=== PATIENT | female | born 1985 | race Caucasian/White ===

== ENCOUNTER 2020-12-01 13:35 | Emergency (ER) | payer OTHER, SELFPAY ==
[2020-12-01 14:11] VITALS: BP 103/59; PULSE 77; RESP 18; TEMP 36.1; O2SAT 98; BMI 31.6
--- NOTE | 2020-12-01 15:30 | ED_ITS ---
HPI - General Adult General Chief complaint: General Medical Stated complaint: covid symptoms Time Seen by Provider: 12/01/20 15:30 Source: patient Mode of arrival: ambulatory Limitations: no limitations History of Present Illness HPI narrative: 35 y/o female with history of anxiety, ADHD, PTSD presents to the ED with 2 days of headaches, body aches, dry cough and intermittent vomiting. She has been able to tolerate some food and drink by mouth if she takes her Zofran in the morning. She reports coughing and difficultly taking a deep breath in. No chest pain or JOHN. She has not had any fevers. She denied abdominal pain but has been nauseated. Last time she vomited was last night. She has 6 children and presents with her daughter who has a new fever noted today. No other sick contacts. She lives in a [facility] but has her own apartment in the [facility] [place]. complaint: COVID symptoms Onset (ago): day(s) (2) Location: head, chest, back and abdomen Radiation: non-radiation Severity: moderate Quality: aching Pain Consistency: intermittent Relieving factors: medication Exacerbating factors: movement Associated symptoms: cough, diaphoresis, headaches, malaise, nausea/vomiting and shortness of breath Treatments prior to arrival: none Related Data Home Medications Medication Instructions Recorded Confirmed buprenorphine HCl 8 mg sublingual mg SUBLINGUAL 06/08/20 09/06/20 tablet Previous Rx's Medication Instructions Recorded gabapentin 800 mg tablet 800 mg PO TID 90 Days #270 tab 10/27/20 lisdexamfetamine 60 mg capsule 60 mg PO DAILY 30 Days #30 cap 10/27/20 azithromycin [Zithromax Z-Miller] See Rx Instructions .ROUTE 12/01/20 .COMPLEX #6 tab benzonatate [Tessalon Perles] 100 mg PO BID PRN #10 cap 12/01/20 clonazepam 0.5 mg tablet 0.5 mg PO DAILY 30 Days #30 tab 12/01/20 clonazepam [Klonopin] 0.5 mg PO DAILY #3 tab 12/01/20 prednisone 40 mg PO DAILY #10 tab 12/01/20 Allergies Allergy/AdvReac Type Severity Reaction Status Date / Time clonidine Allergy Severe Swelling Verified 12/01/20 14:11 Review of Systems Review of Systems: Constitutional: No Fever, No Chills ENT/Mouth: + sore throat, No Rhinorrhea, No Swallowing Difficulty Eyes: No Eye Pain, No Swelling, No Redness Cardiovascular: No Chest Pain, No SOB, No Orthopnea, No Edema Respiratory: + Cough, No Sputum, No Wheezing, No dyspnea Gastrointestinal: + Nausea, + Vomiting, No Diarrhea, No abdominal Pain Genitourinary: No Dysuria, No Urinary Frequency, No Hematuria Musculoskeletal: No joint pain, + Myalgias Skin: No Skin Lesions, No rash Neuro: No Weakness, No Numbness, + Dizziness, + Headache Psych: + Anxiety/Panic Heme/Lymph: No Bruising, No Lymphadenopathy [facility] Past Medical History Attestation statement: The following information was validated with the patient. Medical History ADHD (attention deficit hyperactivity disorder) GERD without esophagitis Opiate dependence PTSD (post-traumatic stress disorder) Family History Family History (Updated 09/06/20 @ 18:17 by ROSANA Estrada) Mother No problems noted. Social History Social History Alcohol intake: former Smoking Status: Former smoker Tobacco Type: Cigarette Advance Directives: No Advance Directives Information Provided: No Physical Exam Vital Signs: Vital Signs: Last Vital Signs Temp 97.0 F 12/01/20 14:11 Pulse 77 12/01/20 14:11 Resp 18 12/01/20 14:11 BP 103/59 L 12/01/20 14:11 Pulse Ox 98 12/01/20 14:11 Body Mass Index 31.6 Appearance: Alert. Oriented X3. No acute distress. ENT: Pharynx normal. Normal TM's bilaterally. Neck: Normal inspection. Neck supple. CVS: Normal heart rate and rhythm. Pulses normal. Respiratory: No respiratory distress. Breath sounds normal. Abdomen: Soft and nontender. +BS x4 Skin: Skin warm and dry. Normal skin color. Normal skin turgor. No rashes. Extremities: No lower extremity edema. Negative Adela's sign. Neuro: Oriented X 3. No motor deficit. No sensory deficit. Steady gait. Course Course Course Narrative: 35 y/o female presenting with signs and symptoms of COVID-19 for the last 2 days. No known exposure. Her child is ill with fever and cough as well. Patient is non-toxic appearing and VS are normal. Will get Viral PCR. Reevaluation(s) Reevaluation #1: Patient is positive for COVID-19. She was counseled on diagnosis, management and warning signs/symptoms to prompt urgent referral to the ER. She is tearful and anxious. She is asking for her medication for anxiety. Discussed need for follow up with her PCP which she agrees to, reports just getting off of the phone with them now awaiting phone call back. Will give a 1-2 day supply of her Klonopin for her anxiety. She is stable for discharge home. Medical Decision Making Lab Data Labs: Lab Results 12/01/20 Range/Units 15:27 Coronavirus (PCR) POSITIVE A (Negative) Influenza Type A (PCR) NEGATIVE (Negative) Influenza Type B (PCR) NEGATIVE (Negative) RSV RNA Qual (PCR) NEGATIVE (Negative) Critical Care Time Critical Care Time Critical Care Time: No Discharge Plan Discharge Clinical Impression: COVID-19 Patient Disposition: Home, Self-Care Instructions: COVID-19 (Coronavirus Disease 2019) (ED) Additional Instructions: You were found to be COVID-19 POSITIVE today. Your oxygen levels were normal. Rest. Drink plenty of fluids. Do not go out in public for the next 10 days. Take over the counter cold/flu medications as needed for your symptoms. Take Tylenol and/or Motrin as needed for fevers and body aches. Follow up with your doctor this week. If you shortness of breath worsens, if you develop difficulty breathing or any other concerning symptom come back to the ER for further evaluation. Prescriptions: New prednisone 20 mg tablet 40 mg PO DAILY Qty: 10 RF: 0 benzonatate [Tessalon Perles] 100 mg capsule 100 mg PO BID PRN (Reason: cough) Qty: 10 RF: 0 azithromycin [Zithromax Z-Miller] 250 mg tablet See Rx Instructions .ROUTE .COMPLEX Qty: 6 RF: 0 clonazepam [Klonopin] 0.5 mg tablet 0.5 mg PO DAILY Qty: 3 RF: 0 No Action gabapentin 800 mg tablet 800 mg PO TID 90 Days Qty: 270 RF: 1 Vyvanse 60 mg capsule 60 mg PO DAILY 30 Days Qty: 30 RF: 0 clonazepam 0.5 mg tablet 0.5 mg PO DAILY 30 Days Qty: 30 RF: 3 buprenorphine HCl 8 mg tablet, sublingual sublingual RF: 0 Referrals: Te Jeong PA-C [Primary Care Provider] - 2 days
[2020-12-01 16:22] LABS: Influenza A PCR NEGATIVE (Negative); Influenza B PCR NEGATIVE (Negative); Resp Syncy Virus RNA Qual PCR NEGATIVE (Negative); SARS COV2 PCR INHOUSE POSITIVE (Negative)
== END 2020-12-01 18:18 | disposition home or self-care (01) ==
PROVIDERS: Emergency Provider Emergency Medicine Emergency Medical Services; PCP Physician Assistant
DX: U07.1 COVID-19 (principal); R05 Cough; M79.10 Myalgia, unspecified site; Z79.899 Other long term (current) drug therapy
CPT/HCPCS: 0241U; 36415; 99283

== ENCOUNTER 2021-09-24 16:39 | Emergency (ER) | payer OTHER, SELFPAY ==
[2021-09-24 16:51] VITALS: RESP 18; BMI 23.6
--- NOTE | 2021-09-24 17:08 | ED_ITS ---
HPI - Skin/Abscess/Foreign Bdy General Chief complaint: Skin/Abscess/Foreign Body Stated complaint: came in contact with scabies Time Seen by Provider: 09/24/21 17:08 Source: patient Mode of arrival: ambulatory Limitations: no limitations History of Present Illness HPI narrative: Patient is a 36 year old female presenting to the emergency department today after a scabies exposure and requesting a COVID-19 test. Patient states that she is currently living in a long-term that had a scabies outbreak and she would like treatment. Additionally, patient states that she would like to be tested for COVID-19 while she is here. Patient denies any dizziness, lightheadedness, abdominal pain, nausea, vomiting, fever, chills, blurry vision, double vision, loss of vision, chest pain, difficulty breathing, shortness of breath, back pain, night sweats, pain with urination, increased urinary frequency, increased urinary urgency, blood in her urine or stool, syncope or a near syncopal episode, recent trauma or falls, bowel incontinence, bladder incontinence, bowel retention, bladder retention, or any other complaints at this time. Exacerbating factors: none Context: none Associated symptoms: denies other symptoms Treatments prior to arrival: none Related Data Home Medications Medication Instructions Recorded Confirmed buprenorphine HCl 8 mg sublingual 24 mg SUBLINGUAL tab 06/15/21 06/15/21 tablet Previous Rx's Medication Instructions Recorded clonazepam 0.5 mg tablet 0.5 mg PO DAILY 30 Days #30 tab 07/19/21 (Klonopin) lisdexamfetamine 60 mg capsule 60 mg PO DAILY 30 Days #30 cap 09/02/21 (Vyvanse) gabapentin 800 mg tablet 800 mg PO TID 90 Days #270 tab 09/19/21 lactulose 20 gram/30 mL oral 20 g (30 mL) PO DAILY PRN 15 Days 09/19/21 solution #1200 ml ivermectin 3 mg tablet 14,515 mcg PO DAILY 1 Days #1 tab 09/24/21 Allergies Allergy/AdvReac Type Severity Reaction Status Date / Time clonidine Allergy Severe Swelling Verified 06/15/21 10:48 Review of Systems Verdana 4l Constitutional: Verdana 4d Constitutional: Verdana 4d Verdana 4d Reports no additional constitutional complaints, Denies chills, Denies fever(s) and Denies night sweats Verdana 4l Eyes: Verdana 4d Verdana 4d Eyes: Verdana 4d Reports no additional eye complaints, Denies blurry vision, Denies change in vision, Denies diplopia, Denies eye discharge, Denies loss of vision and Denies eye pain Verdana 4l ENT: Verdana 4d Denies dizziness Verdana 4l Cardiovascular: Verdana 4d Cardiovascular: Verdana 4d Verdana 4d Reports no additional cardiovascular complaints, Denies chest pain, Denies lightheadedness, Denies Loss of Consciousness and Denies dyspnea Verdana 4l Respiratory: Verdana 4d Verdana 4d Respiratory: Verdana 4d Reports no additional respiratory complaints and Denies dyspnea Verdana 4l Gastrointestinal: Verdana 4d Gastrointestinal: Verdana 4d Verdana 4d Reports no additional gastrointestinal complaints, Denies abdominal pain, Denies melena, Denies hematochezia, Denies change in bowel habits and Denies change in stool character Verdana 4l Genitourinary: Verdana 4d Verdana 4d Genitourinary: Verdana 4d Denies hematuria, Denies urinary frequency, Denies dysuria, Denies urinary incontinence, Denies urinary hesitancy and Denies urinary urgency Verdana 4l Musculoskeletal: Verdana 4d Musculoskeletal: Verdana 4d Verdana 4d Reports no additional musculoskeletal complaints, Denies numbness and Denies tingling Verdana 4l Neurologic: Verdana 4d Denies dizziness, Denies loss of vision, Denies numbness and Denies tingling Verdana 4l Psychiatric: Verdana 4d Verdana 4d Psychiatric: Verdana 4d Reports no additional psychiatric complaints Verdana 4l Endocrine: Verdana 4d Verdana 4d Endocrine: Verdana 4d Reports no additional endocrine complaints Verdana 4l Hematologic/Lymphatic: Verdana 4d Hematologic/Lymphatic: Verdana 4d Verdana 4d Reports no additional hematologic/lymphatic complaints Verdana 4l Allergic/Immunologic: Verdana 4d Allergic/Immunologic: Verdana 4d Verdana 4d Reports no additional allergic/immunologic complaints PMFSH Past Medical History Attestation statement: The following information was validated with the patient. Source: old records reviewed Medical History ADHD (attention deficit hyperactivity disorder) GERD without esophagitis Opiate dependence PTSD (post-traumatic stress disorder) Family History Family History Mother No problems noted. Social History Social History Housing: Apartment Alcohol intake: former Patient Tobacco Use Status: Former Tobacco user e-Cigarette/Vaping Use: Never Used Second Hand Smoke Exposure: No Advance Directives: No Advance Directives Information Provided: No Patient : No Physical Exam Verdana 4l Vital Signs: Verdana 4d Verdana 4d Vital Signs: Verdana 4d Verdana 4Bd Last Vital Signs Verdana 4d Predator Control Trapper New 4d Predator Control Trapper New 4d Resp 18 09/24/21 16:51 Verdana 4d Verdana 4Bd BMI result Predator Control Trapper New 4d Predator Control Trapper New 4d Predator Control Trapper NewNew 4d Body Mass Index 23.6 Const: General: cooperative, no acute distress, alert and awake Nutritional Appearance: well nourished Orientation/consciousness: patient oriented x3 Limitations: no limitations HENMT: Head: Yes normal to inspection and Yes atraumatic Ears: hearing grossly normal bilaterally and external ears normal General nose exam: Normal external nose present, no nasal discharge noted and no epistaxis Face and sinus: Yes normal facial exam, No abrasion and No laceration Mouth: Normal oral and palatal mucosa present, no drooling and no muffled voice Eyes: General: appearance normal, both eyes and all related structures Periorbital: periorbital findings normal Eyelids: Yes eyelids normal Conjunctivae: conjunctivae normal Pupils: Equal, round and reactive pupils present EOM: EOMs intact bilaterally Neck: Neck: Yes normal visual inspection, Yes full ROM and Yes no lymphadenopathy Chest: Chest palpation & inspection: normal inspection of the chest Resp: Effort & Inspection: normal respiratory effort and able to speak in complete sentences Auscultation: clear to auscultation bilaterally Cardio: Rhythm: regular rhythm Heart sounds: S1 normal heart sound present GI: Inspection: Yes normal to inspection Neuro: General: patient oriented x3 and moves all extremities Cranial nerves: Yes Equal, round and reactive pupils present Cognition (Neuro): normal cognition Motor exam (neuro): 5/5 motor strength present throughout Sensory Exam: Normal double simultaneous stimulation for sensation Coordination: [id number] test normal Extrem: General: Yes normal to inspection, Yes full ROM and Yes capillary refill normal Psych: Appearance: grossly normal Mental Status: mental status grossly normal Affect: normal affect Attitude: cooperative Thought process: Normal thought process present Thought content: Normal thought content present Insight: Good insight present (Psych) MDM - Skin/Abscess/Foreign Bdy MDM Narrative Medical decision making narrative: Patient is a 36 year old female presenting to the emergency department today after a scabies exposure and requesting a COVID-19 test. Patient's physical exam was unremarkable. Patient's COVID-19 test is pending. I explained my physical exam findings to the patient. I answered all questions asked by the patient. Patient received a dose of oral Ivermectin here in the department and an additional dose, to be taken in 1 week, was prescribed. I stressed the importance of the patient taking her medication as prescribed. I stressed the importance of the patient following up with her primary care provider. I stressed the importance of the patient returning to the emergency department immediately if her symptoms were to worsen or if she were to develop any dizziness, shortness of breath, difficulty breathing, chest pain, blurry vision, loss of vision, nausea, vomiting, abdominal pain, fever, chills, back pain, or any other complaints. Patient verbalized agreement and understanding with this treatment plan and discharge. Differential Diagnosis Differential diagnosis: Likely insect bites (scabies, bed bugs) Medical Records Attestation: I reviewed the patient's medical records. Discharge Plan Discharge Clinical Impression: Scabies exposure, Scabies Patient Disposition: Home, Self-Care Instructions: Scabies (ED) Additional Instructions: Follow up with your primary care provider. Return to the emergency department immediately if your symptoms worsen or if you develop any dizziness, shortness of breath, difficulty breathing, chest pain, blurry vision, loss of vision, nausea, vomiting, abdominal pain, fever, chills, back pain, or any other complaints. Prescriptions: New ivermectin 3 mg tablet 14,515 mcg PO DAILY 1 Days Qty: 1 0RF Rx Instructions: Take on 10/01/2021 No Action clonazepam [Klonopin] 0.5 mg tablet 0.5 mg PO DAILY 30 Days Qty: 30 2RF Vyvanse 60 mg capsule 60 mg PO DAILY 30 Days Qty: 30 0RF lactulose 20 gram/30 mL solution 20 g PO DAILY PRN (Reason: laxative effect) 15 Days Qty: 1200 0RF gabapentin 800 mg tablet 800 mg PO TID 90 Days Qty: 270 1RF buprenorphine HCl 8 mg tablet, sublingual 24 mg sublingual 0RF Referrals: Te Jeong PA-C [Primary Care Provider] - 2 days Print Language: Malaysian
[2021-09-24 18:33] LABS: COVID-19 Test Negative (Negative)
== END 2021-09-24 18:15 | disposition home or self-care (01) ==
PROVIDERS: Physician Assistant Medical; Emergency Provider Emergency Medicine Emergency Medical Services; PCP Physician Assistant
DX: B86 Scabies (principal); Z79.899 Other long term (current) drug therapy; Z20.822 Contact with and (suspected) exposure to COVID-19
CPT/HCPCS: 87635; 99283

== ENCOUNTER 2022-04-20 18:55 | Emergency (ER) | payer OTHER, SELFPAY ==
[2022-04-20 19:36] VITALS: BP 122/87; PULSE 94; RESP 16; TEMP 35.9; O2SAT 98; BMI 21.6
[2022-04-20 20:37] VITALS: BP 115/66; PULSE 73; RESP 18; TEMP 37.2; O2SAT 100
[2022-04-20 22:58] VITALS: BP 122/85; PULSE 70; RESP 20; TEMP 36.6; O2SAT 99
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
--- NOTE | 2022-04-20 23:07 | PC.NURSE ---
Patient VS were taken and HR keeps fluctuating.Patient was connected to the [employer]- [employer]. Patient was observed and assessed. Patient reported no pain and she seems sedated to the nurse.
--- NOTE | 2022-04-21 00:05 | PC.NURSE ---
Pt sleeping, chest rise and fall observed, safety maintained, this RN continues to monitor.
--- NOTE | 2022-04-21 00:21 | MHC.CARE ---
Matt completed- awaiting tox screen
[2022-04-21 01:57] LABS: MANUAL DIFF FLAG NO
[2022-04-21 01:58] LABS: Basophils Percent Auto 0.4 % (0-2); Eosinophils Absolute Auto 0.1 X10*3/uL (0.0-0.4); Eosinophils Percent Auto 1.8 % (0-4); Hematocrit 39.8 % (37.0-47.0); Hemoglobin 13.2 g/dl (12.0-16.0); Imm Gran Abs Auto 0.01 X10*3/uL (0.00-0.03); Imm Gran Pct Auto 0.2 % (0.0-0.4); Lymphocytes Absolute Auto 2.7 X10*3/uL (1.2-4.9); Lymphocytes Percent Auto 49.3 % (20-40); Mean Corpuscular HGB Conc 33.2 g/dl (31.0-35.0); Mean Corpuscular Volume 87.5 fL (80.0-98.0); Mean Platelet Volume 10.1 fL (9.4-12.3); Monocytes Absolute Auto 0.5 X10*3/uL (0.1-1.2); Monocytes Percent Auto 8.5 % (2-11); Neutrophils Absolute Auto 2.2 x10*3/uL (2.0-8.3); Neutrophils Percent Auto 39.8 % (45-73); Platelet Count 178 X10*3/uL (160-400); Red Blood Count 4.55 X10*6/uL (4.20-5.50); Red Cell Distribution Width 13.8 % (11.0-16.0); White Blood Count 5.5 X10*3/uL (4.8-10.8)
[2022-04-21 02:00] VITALS: BP 127/74; PULSE 103; O2SAT 99
[2022-04-21 02:14] LABS: Appearance Urine Clear; Color Urine Dark Yellow; Glucose Urine UA Negative (Negative); Leukocyte Esterase Urine Small (1+) (Negative); Nitrite Urine Negative (Negative); Specific Gravity - Urine >= 1.030 (1.005-1.025); Urine Blood Negative (Negative); Urine Ketones Trace mg/dL (Negative); Urine Protein Trace mg/dL (Neg-Trace)
[2022-04-21 02:17] LABS: Alanine Aminotransferase 15 U/L (0-31); Albumin Level 4.1 g/dL (3.5-5.0); Alkaline Phosphatase 42 U/L (39-117); Anion Gap 12 (12-20); Aspartate Amino Transferase 25 U/L (5-31); Bilirubin Total 0.8 mg/dL (0.0-1.0); Blood Urea Nitrogen 13 mg/dL (9-16); Carbon Dioxide 31 mmol/L (22-29); Chloride 103 mmol/L (96-108); Creatinine Clr Calc Pharmacy 88.8; Estimated Glomerular Filt Rate > 60; Ethanol < 10 mg/dL; Glucose Random 99 mg/dL (60-115); Potassium 3.5 mmol/L (3.3-5.1); Sodium 142 mmol/L (135-145); Total Protein 6.7 g/dL (6.5-8.0)
[2022-04-21 02:19] LABS: Bacteria Urine 1+ (None Seen); Hyaline Casts Urine 0-2 /LPF (0-2); RBC Urine 0-2 /HPF (0-2); UACC Culture Trigger YES
[2022-04-21 02:28] LABS: Amphetamine Screen Urine POSITIVE (Not Detect); Barbiturates, Urine Not Detected (Not Detect); Benzodiazepines Screen Urine Not Detected (Not Detect); Cannabinoid Screen Urine POSITIVE (Not Detect); Cocaine Screen Urine Not Detected (Not Detect); Fentanyl, urine Not Detected (Not Detect); Opiate Screen Urine Not Detected (Not Detect); Phencyclidine Screen Urine Not Detected (Not Detect)
--- NOTE | 2022-04-21 03:25 | PC.NURSE ---
Pt sleeping chest rise and fall observed, call light in reach, thsi R continues to monitor.
[2022-04-21] MEDS: Nitrofurantoin Monohyd/M-Cryst 100 MG CAPSULE PO ×2 (03:58→20:33)
--- NOTE | 2022-04-21 04:15 | PC.NURSE ---
Pt reports pain with urinating, was happy with the Macrobid offered for UTI. Pt pleasant, calm cooperative.
[2022-04-21 05:57] VITALS: BP 104/70; PULSE 87; RESP 18; O2SAT 99
--- NOTE | 2022-04-21 07:33 | PC.NURSE ---
Handoff received. Pt is currently sleeping with breaths even and unlabored. No apparent distress. Will continue to monitor.
[2022-04-21 07:35] VITALS: BP 114/75; PULSE 66; RESP 14; TEMP 36.5; O2SAT 100
--- NOTE | 2022-04-21 07:50 | PC.NURSE ---
Pt is awake reporting lower abd pain. Ambulated to the bathroom with assistance. Reports inability to void. Pt requeting home medications (Suboxone 8mg). Med reconciliation order put in for pharmacy. Pt aware of plan of care. Will continue to monitor.
--- NOTE | 2022-04-21 08:41 | PHA.MEDREC ---
Pharmacy Consult ? Medication Reconciliation Pharmacy has completed the medication reconciliation. Patient states permethrin 5% cream is not for her, but rather for her children.
[2022-04-21] MEDS: Buprenorphine/Naloxone 8/2 mg FILM 1 FILM SUBLINGUAL (10:51)
[2022-04-21] MEDS: clonazePAM 0.5 MG TABLET PO (10:51)
[2022-04-21] MEDS: Gabapentin 400 MG CAPSULE 800 MG PO ×3 (10:52→20:33)
--- NOTE | 2022-04-21 10:55 | PC.NURSE ---
Pt in bed starring at the light stating I can make the light flicker. I am not crazy, I have these special gifts. Pt teary eyed. Med administer. Pt with 1:1 observation. Will continue to monitor.
[2022-04-21 11:49] VITALS: BP 146/93; PULSE 101; RESP 14; TEMP 36.6; O2SAT 100
--- NOTE | 2022-04-21 11:59 | PC.NURSE ---
clothing and cellphone placed in bag- to be placed in locker
--- NOTE | 2022-04-21 12:04 | PC.NURSE ---
belongings placed in locker #11
[2022-04-21 15:03] VITALS: BP 111/78; PULSE 104; RESP 18; TEMP 36.4; O2SAT 98
--- NOTE | 2022-04-21 20:05 | PC.NURSE ---
Pt resting, watching tv, Pt calm/cooperative/pleasant, sitter outside room, safety maintained, this RN continues to monitor.
[2022-04-21] MEDS: diphenhydrAMINE HCL 25 MG TABLET PO (20:33)
[2022-04-21] MEDS: LORazepam 0.5 MG TABLET PO (21:35)
--- NOTE | 2022-04-21 21:55 | PC.NURSE ---
Pt was on the phone with family member, became very upset and crying, Pt was given Ativan and Benedryl per her request, sitter outside room, safety maintained, this RN continues to monitor.
--- NOTE | 2022-04-21 22:35 | PC.NURSE ---
Pt sleeping, chest rise and fall observed, sitter outside room, safety maintained, this RN continues to monitor.
[2022-04-22 00:03] VITALS: BP 101/56; PULSE 66; RESP 13; TEMP 36.8; O2SAT 98
--- NOTE | 2022-04-22 00:10 | PC.NURSE ---
Pt sleeping, chest rise and fall observed, sitter outside room,, safety maintained, this RN continues to monitor
--- NOTE | 2022-04-22 02:05 | PC.NURSE ---
Pt sleeping, chest rise and fall observed, sitter outside room, safety maintained, this RN continues to monitor.
[2022-04-22 06:27] VITALS: BP 110/53; PULSE 67; RESP 14; TEMP 37; O2SAT 98
[2022-04-22] MEDS: Gabapentin 400 MG CAPSULE 800 MG PO ×2 (10:13→15:29)
[2022-04-22] MEDS: clonazePAM 0.5 MG TABLET PO (10:13)
[2022-04-22] MEDS: Buprenorphine/Naloxone 8/2 mg FILM 1 FILM SUBLINGUAL (10:13)
[2022-04-22] MEDS: Nitrofurantoin Monohyd/M-Cryst 100 MG CAPSULE PO (10:14)
--- NOTE | 2022-04-22 14:05 | PC.NURSE ---
Pt home medication bottle, [place], sent to pharmacy.
== END 2022-04-22 15:54 | disposition home or self-care (01) ==
PROVIDERS: Emergency Provider Student in an Organized Health Care Education/Training Program; PCP Physician Assistant
DX: F22 Delusional disorders (principal); F11.10 Opioid abuse, uncomplicated; Z87.891 Personal history of nicotine dependence; Z79.899 Other long term (current) drug therapy
CPT/HCPCS: 36415; 80053; 80307; 81001; 82077; 85025; 87086; 99285; Q0163